=== PATIENT | male | born 1940 | race Caucasian/White ===

== ENCOUNTER 2019-08-17 15:49 | Emergency (ER) | payer MEDICARE, BC ==
[2019-08-17] MEDS ORDERED: Diphtheria,Pertussis(Acell),Tetanus Vaccine 0.5 ML SDV IM ONE (16:04)
[2019-08-17] MEDS ORDERED: Lidocaine 1% with EPINEPHrine 1:100,000 20 ML MDV INJECT ONE (16:39)
--- NOTE | 2019-08-17 17:36 | EDM.PDOC ---
"Scribed by Jory Mathur 08/17/19 [id number] for Kayleigh Mcdowell MD ED HPI GENERAL MEDICAL PROBLEM - General Chief Complaint: Trauma Stated Complaint: FELL DOWN, BRIDGE OF NOSE, LEFT EYE SWALLON Time Seen by Provider: 08/17/19 16:05 Source of Information: Reports: Patient, RN, RN Notes Reviewed History Limitations: Reports: No Limitations - History of Present Illness INITIAL COMMENTS - FREE TEXT/NARRATIVE: Patient presents to ER by POV. He was transferred to a trauma chart upon triage in the ER. Pt fell approx. 6' off ladder and struck his head/face on concrete floor or ladder. Denies LOC, neck pain, N/V, or any other injury. Last Tetanus vaccine >10yrs ago. TRAUMA NOTES: ARRIVAL TIME: 1605HRS C-COLLAR STATUS: none SPINAL BOARD/IMMOBILIZATION STATUS: none GCS ON ARRIVAL: 15 Onset: Today, Sudden Duration: Constant Location: Reports: Face Quality: Reports: Ache Severity: Mild Improves with: Reports: None Worsens with: Reports: None Associated Symptoms: Reports: No Other Symptoms - Related Data Allergies Allergy/AdvReac Type Severity Reaction Status Date / Time atorvastatin [From Lipitor] Allergy Muscle Verified 08/17/19 16:04 Aches Home Meds: Home Meds Aspirin 81 mg PO DAILY 05/16/18 [History] Clopidogrel [Plavix] 75 mg PO DAILY 05/16/18 [History] Nitroglycerin 0.4 mg PO ASDIRECTED PRN 05/16/18 [History] Omeprazole 20 mg PO DAILY 05/16/18 [History] Pravastatin Sodium 10 mg PO DAILY 05/16/18 [History] Past Medical History Cardiovascular History: Reports: Heart Murmur, Stents Other Cardiovascular History: Aortic Stenosis, Ptca with stent Other Respiratory History: States has been feeling like chest congestion. Has had antibiotics. Neurological History: Reports: Head Trauma (with subdural hematoma 2019) - Past Surgical History Cardiovascular Surgical History: Reports: Coronary Artery Stent Social & Family History - Family History Family Medical History: Noncontributory - Living Situation & Occupation Living situation: Reports: , with Spouse Occupation: Retired Review of Systems - Review of Systems Review Of Systems: Comprehensive ROS is negative, except as noted in HPI. ED EXAM, GENERAL - Physical Exam Exam: See Below Free Text/Narrative:: PRIMARY TRAUMA SURVEY (1605hrs) AIRWAY: Patent nasal and oral airways. BREATHING: Spontaneous respirations with clear B/L breath sounds. CIRCULATION: Heart RRR, intact distal pulses at all four extremities, no cyanosis. DEFORMITY/DISABILITY: No long bone deformities. No active bleeding. No neuro. deficits. Abdomen benign to exam. Left periorbital contusion, 1.5cm laceration above left eyebrow without active bleeding. EXPOSURE: Skin warm, and dry. SECONDARY TRAUMA SURVEY FOLLOWS (1650hrs) Exam Limited By: No Limitations General Appearance: Alert, WD/WN, No Apparent Distress Eye Exam: Left Eye: Other (periorbital contusion/hematoma), Bilateral Eye: EOMI , PERRL Ears: Normal External Exam, Normal Canal, Hearing Grossly Normal Nose: Normal Inspection, Normal Mucosa, No Blood Throat/Mouth: Normal Inspection, Normal Lips, Normal Teeth, Normal Gums, Normal Oropharynx, Normal Voice, No Airway Compromise Head: Normocephalic, Other (1/5cm linear laceration with soft tissue avulsion at the superior border of the left eyebrow) Neck: Normal Inspection, Supple, Non-Tender, Full Range of Motion, Other (No C- collar. C-spine cleared by Hx and exam, confirmed with CT scan.). No: Lymphadenopathy (L), Lymphadenopathy (R) Respiratory/Chest: No Respiratory Distress, Lungs Clear, Normal Breath Sounds, No Accessory Muscle Use, Chest Non-Tender Cardiovascular: Normal Peripheral Pulses, Regular Rate, Rhythm, No Edema, No Gallop, No JVD, No Murmur, No Rub GI/Abdominal: Normal Bowel Sounds, Soft, Non-Tender, No Organomegaly, No Distention, No Abnormal Bruit, No Mass (Male) Exam: Deferred Rectal (Males) Exam: Deferred Back Exam: Normal Inspection, Full Range of Motion. No: CVA Tenderness (L), CVA Tenderness (R) Extremities: Normal Inspection, Normal Range of Motion, Non-Tender, No Pedal Edema, Normal Capillary Refill, Other (Stable pelvis) Neurological: Alert, Oriented, CN II-XII Intact, Normal Cognition, Normal Gait, No Motor/Sensory Deficits, Other (GSC 15 at 1hr and at discharge.) Psychiatric: Normal Affect, Normal Mood Skin Exam: Warm, Dry, Normal Color, No Rash ED TRAUMA PROCEDURES - Laceration/Wound Repair Left Forehead Lac/Wound Length In cm: 1.5 Appearance: Subcutaneous, Linear Distal NVT: Neuro & Vascular Intact Anesthetic Type: Local Local Anesthesia - Lidocaine (Xylocaine): 1% with EPI Local Anesthetic Volume: 4cc Skin Prep: Chlorhexidine (Hibiciens), Saline, Sterile Drape Saline Irrigation (cc's): 150 Exploration/Debridement/Repair: Wound Explored, In a Bloodless Field, Explored to Base, Minimal Debridement, Minimally Undermined Closed With: Sutures Suture Size: 4-0 # of Sutures: 4 Drain Placement: No Sterile Dressing Applied: None Tetanus Status Addressed: Yes Complications: No Course - Orders/Labs/Meds Orders: Active Orders 24 hr Category Date Time Status Vaccines to be Administered [RC] PER UNIT ROUTINE Care 08/17/19 16:04 Active Meds: Medications Discontinued Medications Generic Name Dose Route Start Last Admin Trade Name Freq PRN Reason Stop Dose Admin Diphtheria/Tetanus/Acell Pertussis 0.5 ml 08/17/19 16:04 08/17/19 16:33 Adacel IM 08/17/19 16:05 0.5 ml .ONCE ONE Administration Lidocaine/Epinephrine 20 ml 08/17/19 16:39 Xylocaine 1% With Epinephrine 1:100,000 INJECT 08/17/19 16:40 ONETIME ONE - Radiology Interpretation Free Text/Narrative:: [facility] Final Radiology Report Call: [phone] assistance Online chat: [email or web address] Name: JUSTYN CR Age: 79Years M Date: 08/17/2019 SSN: -- : [id number] Study: CT HEAD WO Requesting Physician: KAYLEIGH MCDOWELL Images: 144 Addl Studies: Provided Clinical History: Contrast: Without Contrast Medium: Contrast Amount: Contrast Method: Page 1 of 2 PROCEDURE INFORMATION: Exam: CT Head Without Contrast Exam date and time: 08/17/2019 4:29 PM Age: 79 years old Clinical indication: Other: Fell off ladder, struck head, anticoagulated TECHNIQUE: Imaging protocol: Computed tomography of the head without contrast. Radiation optimization: All CT scans at this facility use at least one of these dose optimization techniques: automated exposure control; mA and/or kV adjustment per patient size (includes targeted exams where dose is matched to clinical indication); or iterative reconstruction. 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 There is no evidence for large acute cortical infarct. Moderate degrees of lucency in the white matter are most suggestive of chronic microvascular ischemic disease. This is similar. No intracranial hemorrhage or extraaxial collection is identified. There is no significant intracranial mass effect. Ventricles: The ventricles and sulci are stable in configuration, with similar atrophy. Bones/joints: Unremarkable. No acute fracture. Sinuses: Visualized sinuses are unremarkable. No fluid levels. Mastoid air cells: Visualized mastoid air cells are well aerated. Soft tissues: There is a low left frontal scalp contusion with subcutaneous gas indicating laceration. IMPRESSION: 1. No CT evidence for acute intracranial abnormality. 2. Low left frontal scalp contusion with laceration. JUSTYN CR | Final Radiology Report CONFIDENTIALITY STATEMENT This report is intended only for use by the referring physician, and only in accordance with law. If you received this in error, call [phone]. Page 2 of 2 Thank you for allowing us to participate in the care of your patient. Dictated and Authenticated by: Elias Monteiro MD 08/17/2019 4:48 PM Central Time ([place] & [place]) [facility] Final Radiology Report Call: [phone] assistance Online chat: [email or web address] Name: JUSTYN CR Age: 79Years M Date: 08/17/2019 SSN: -- : [id number] Study: CT SPINE CERVICAL WO Requesting Physician: KAYLEIGH MCDOWELL Images: 276 Addl Studies: Provided Clinical History: Contrast: Without Contrast Medium: Contrast Amount: Contrast Method: Page 1 of 2 PROCEDURE INFORMATION: Exam: CT Cervical Spine Without Contrast Exam date and time: 08/17/2019 4:29 PM Age: 79 years old Clinical indication: Other: Fell off ladder TECHNIQUE: Imaging protocol: Computed tomography images of the cervical spine without contrast. Radiation optimization: All CT scans at this facility use at least one of these dose optimization techniques: automated exposure control; mA and/or kV adjustment per patient size (includes targeted exams where dose is matched to clinical indication); or iterative reconstruction. COMPARISON: No relevant prior studies available. FINDINGS: Vertebrae: Vertebral body heights are intact. Straightening of the cervical lordotic curve could be secondary to muscle spasm or positioning. Alignment is otherwise maintained. No acute fracture is identified. Multilevel findings: There is multilevel spondylosis with variable osteophytic encroachment of several neural foramina. CT is not optimal for the evaluation of the discs, neural foramina or spinal canal or cord. No significant spinal stenosis is evident. Other bones/joints: The bones appear osteopenic. Soft tissues: The prevertebral soft tissues are not significantly swollen. Vasculature: Atherosclerotic vascular calcifications are noted. Lungs: Visualized lung apices are clear. Pleural space: No apical pneumothorax is identified. IMPRESSION: 1. No acute fracture or dislocation identified. JUSTYN CR | Final Radiology Report CONFIDENTIALITY STATEMENT This report is intended only for use by the referring physician, and only in accordance with law. If you received this in error, call [phone]. Page 2 of 2 2. Spondylosis without significant spinal stenosis evident. The discs and integrity of the cord could be better evaluated by means of MRI as clinically appropriate. 3. Apparent osteopenia. Thank you for allowing us to participate in the care of your patient. Dictated and Authenticated by: Elias Monteiro MD Departure - Departure Time of Disposition: 17:17 Disposition: Home, Self-Care 01 Condition: Good Clinical Impression: Minor closed head injury Laceration of left eyebrow without complication Qualifiers: Encounter type: initial encounter Qualified Code(s): S01.112A - Laceration without foreign body of left eyelid and periocular area, initial encounter Traumatic contusion of left periorbital region Qualifiers: Encounter type: initial encounter Qualified Code(s): S05.12XA - Contusion of eyeball and orbital tissues, left eye, initial encounter Fall from ladder Qualifiers: Encounter type: initial encounter Qualified Code(s): W11.XXXA - Fall on and from ladder, initial encounter - Discharge Information *PRESCRIPTION DRUG MONITORING PROGRAM REVIEWED*: Not Applicable *COPY OF PRESCRIPTION DRUG MONITORING REPORT IN PATIENT ALAN: Not Applicable Instructions: Facial or Scalp Contusion, [id number], Sutured Wound Care Forms: ED Department Discharge Additional Instructions: Follow up in clinic for suture removal in 7 to 10 days. Return to ER if any new symptoms develop such as severe headaches, visual changes, or confusion. Sepsis Event Note - Focused Exam Date Exam was Performed: 08/17/19 Time Exam was Performed: 17:26 - My Orders Last 24 Hours: My Active Orders 08/17/19 16:04 Vaccines to be Administered [RC] PER UNIT ROUTINE - Assessment/Plan Last 24 Hours: My Active Orders 08/17/19 16:04 Vaccines to be Administered [RC] PER UNIT ROUTINE I have read and agree with the documentation that has been completed regarding this visit. By signing this record, I attest that the documentation was completed in my physical presence and is an accurate record of the encounter."
== END 2019-08-17 17:46 | disposition home or self-care (01) ==
LOC: DL.ED 15:49
DX: S01.112A Laceration without foreign body of left eyelid and periocular area, initial encounter (principal); S01.81XA Laceration without foreign body of other part of head, initial encounter; Z79.02 Long term (current) use of antithrombotics/antiplatelets; Z79.899 Other long term (current) drug therapy; Z88.8 Allergy status to other drugs, medicaments and biological substances; Z23 Encounter for immunization; W11.XXXA Fall on and from ladder, initial encounter
CPT/HCPCS: 12011; 70450; 72125; 90471; 90715; 99283-25; 99284

== ENCOUNTER 2019-11-24 17:23 | Emergency (ER) | payer MEDICARE, BC ==
[2019-11-24] MEDS ORDERED: Tetracaine HCl/PF 0.5% 4 ML Bottle EYELF ONE (17:40)
[2019-11-24] MEDS ORDERED: Fluorescein 1 MG Ophth Strip EYELF ONE (17:40)
--- NOTE | 2019-11-24 18:05 | EDM.PDOC ---
ED HPI GENERAL MEDICAL PROBLEM - General Chief Complaint: ENT Problem Stated Complaint: SOMETHING IN LEFT EYE Time Seen by Provider: 11/24/19 17:45 Source of Information: Reports: Patient History Limitations: Reports: No Limitations - History of Present Illness INITIAL COMMENTS - FREE TEXT/NARRATIVE: This 79 yo male patient reports to the ED due to left eye irritation. The so ent reports he was outside spraying for mosquitos and working in the yard when he got something stuck in his left eye. Onset: Today Duration: Hour(s):, Constant Location: Reports: Face (left eye) Quality: Reports: Ache, Dull Severity: Moderate Improves with: Reports: None Worsens with: Reports: None Context: Reports: Other Associated Symptoms: Reports: No Other Symptoms Left Eye Pain Score (Numeric/FACES): 6 - Related Data Allergies Allergy/AdvReac Type Severity Reaction Status Date / Time atorvastatin [From Lipitor] Allergy Muscle Verified 11/24/19 17:40 Aches Home Meds: Home Meds Aspirin 81 mg PO DAILY 05/16/18 [History] Omeprazole 20 mg PO DAILY 05/16/18 [History] lisinopriL [Lisinopril] 5 mg PO ASDIRECTED 11/24/19 [History] Past Medical History HEENT History: Reports: Other (See Below) Other HEENT History: Here with eye irritation Cardiovascular History: Reports: Heart Murmur, Hypertension, Stents Other Cardiovascular History: Aortic Stenosis, Ptca with stent Other Respiratory History: States has been feeling like chest congestion. Has had antibiotics. Genitourinary History: Reports: BPH Neurological History: Reports: Head Trauma - Past Surgical History HEENT Surgical History: Reports: None Cardiovascular Surgical History: Reports: Coronary Artery Stent Social & Family History - Family History Family Medical History: Noncontributory - Living Situation & Occupation Living situation: Reports: , with Spouse Occupation: Retired ED ROS GENERAL - Review of Systems Review Of Systems: Comprehensive ROS is negative, except as noted in HPI. ED EXAM GENERAL W FULL EYE - Physical Exam Exam: See Below Exam Limited By: No Limitations General Appearance: Alert, WD/WN, No Apparent Distress Eye Exam: Left Eye: Corneal Abrasion, Bilateral Eye: EOMI, Normal Inspection, PERRL Eyelids: Left: Erythema, Lid Everted for Exam Cornea Exam: Left: Corneal Abrasion Extraocular Movements: Bilateral: Intact Pupils: Normal Accommodation Pupillary Size: Bilateral: 5 mm Pupillary Reaction: Bilateral: Brisk Ears: Normal External Exam Nose: Normal Inspection, Normal Mucosa, No Blood Throat/Mouth: Normal Inspection, Normal Lips, Normal Teeth, Normal Gums, Normal Oropharynx, Normal Voice, No Airway Compromise Head: Atraumatic, Normocephalic Neck: Normal Inspection, Supple, Non-Tender, Full Range of Motion Respiratory/Chest: No Respiratory Distress, Lungs Clear, Normal Breath Sounds, No Accessory Muscle Use, Chest Non-Tender Cardiovascular: Normal Peripheral Pulses, Regular Rate, Rhythm, No Edema, No Gallop, No JVD, No Murmur, No Rub (Male) Exam: Deferred Rectal (Males) Exam: Deferred Extremities: Normal Inspection Neurological: Alert, Oriented Psychiatric: Normal Affect, Normal Mood ED EYE w/ Add Procedure - Eye Procedure Eye FB Removal: Removal w/ Cotton Swab Cyclogel 2 Drops Administered: Left Eye Antibiotic Oinment/Drps Admin: Left Eye Course - Vital Signs Last Recorded V/S: Last Vital Signs Temp 36.6 C 11/24/19 17:35 Pulse 61 11/24/19 17:35 Resp 18 11/24/19 17:35 BP 143/64 H 11/24/19 17:35 Pulse Ox 99 11/24/19 17:35 - Orders/Labs/Meds Meds: Medications Discontinued Medications Generic Name Dose Route Start Last Admin Trade Name Matteo PRN Reason Stop Dose Admin Fluorescein Sodium 1 mg 11/24/19 17:40 Ful-Daisha EYELF 11/24/19 17:41 ONETIME ONE Tetracaine HCl 1 ml 11/24/19 17:40 Tetracaine 0.5% Steri-Unit Katie EYELF 11/24/19 17:41 ASDIRECTED ONE Departure - Departure Time of Disposition: 18:11 Disposition: Home, Self-Care 01 Condition: Fair Clinical Impression: Corneal abrasion Qualifiers: Encounter type: initial encounter Laterality: left Qualified Code(s): S05.02XA - Injury of conjunctiva and corneal abrasion without foreign body, left eye, initial encounter Foreign body of left eye Qualifiers: Encounter type: initial encounter Qualified Code(s): T15.92XA - Foreign body on external eye, part unspecified, left eye, initial encounter - Discharge Information *PRESCRIPTION DRUG MONITORING PROGRAM REVIEWED*: Not Applicable *COPY OF PRESCRIPTION DRUG MONITORING REPORT IN PATIENT ALAN: Not Applicable Instructions: Corneal Abrasion, [id number] Care Plan Goals: The patient was advised of the examination results during the visit. The foreign body was removed from the left eye. The patient was discharged with Polytrim Ointment to apply a 1/4 inch ribbon applied to the lower eyelid 4 times per day for 7 days. If the patient has any additional symptoms or concerns, the patient should either return to the emergency department or visit his primary care facility. Sepsis Event Note (ED) - Evaluation Sepsis Screening Result: No Definite Risk - Focused Exam Vital Signs: Vital Signs Temp Pulse Resp BP Pulse Ox 11/24/19 17:35 36.6 C 61 18 143/64 H 99
[2019-11-24] MEDS ORDERED: Bacitracin/Polymyxin B Ophth Oint 3.5 GM Tube ONE (18:14)
== END 2019-11-24 18:22 | disposition home or self-care (01) ==
LOC: DL.ED 17:23
DX: T15.02XA Foreign body in cornea, left eye, initial encounter (principal); I10 Essential (primary) hypertension; Z79.82 Long term (current) use of aspirin; Z79.899 Other long term (current) drug therapy; Z88.8 Allergy status to other drugs, medicaments and biological substances
CPT/HCPCS: 65220; 99283; A9270

== ENCOUNTER 2020-12-26 20:18 | Emergency (ER) | payer MEDICARE, BC ==
[2020-12-26] MEDS ORDERED: Tetracaine HCl/PF 0.5% 4 ML Bottle EYEBOTH ONE (20:25)
[2020-12-26] MEDS ORDERED: Fluorescein 1 MG Ophth Strip EYERT ONE (20:25)
[2020-12-26] MEDS ORDERED: Polymyxin B/Trimethoprim 10 ML Bottle ONE (20:48)
--- NOTE | 2020-12-26 20:50 | EDM.PDOC ---
ED HPI GENERAL MEDICAL PROBLEM - General Chief Complaint: Eye Problems Stated Complaint: SOMETHING IN EYE Time Seen by Provider: 12/26/20 20:40 Source of Information: Reports: Patient History Limitations: Reports: No Limitations - History of Present Illness INITIAL COMMENTS - FREE TEXT/NARRATIVE: This 80 yo male patient reports to the ED due to something in his left eye. The patient reports he was working in the shop when he noticed something in his eye. The patient reports he attempted to flush the eye with drops, but continued to have pain to the eye. The patient reports pain to the left upper eyelid. Onset: Today Duration: Minutes: Location: Reports: Face Quality: Reports: Ache Severity: Mild Improves with: Reports: None Worsens with: Reports: None Context: Reports: Other Associated Symptoms: Reports: No Other Symptoms - Related Data Allergies Allergy/AdvReac Type Severity Reaction Status Date / Time atorvastatin [From Lipitor] Allergy Muscle Verified 12/26/20 20:31 Aches Home Meds: Home Meds Aspirin 81 mg PO DAILY 05/16/18 [History] Omeprazole 20 mg PO DAILY 05/16/18 [History] lisinopriL [Lisinopril] 5 mg PO ASDIRECTED 11/24/19 [History] Past Medical History HEENT History: Reports: Other (See Below) Other HEENT History: Here with eye irritation Cardiovascular History: Reports: Heart Murmur, Hypertension, Stents Other Cardiovascular History: Aortic Stenosis, Ptca with stent Other Respiratory History: States has been feeling like chest congestion. Has had antibiotics. Gastrointestinal History: Reports: None Genitourinary History: Reports: BPH Musculoskeletal History: Reports: None Neurological History: Reports: Head Trauma Psychiatric History: Reports: None Endocrine/Metabolic History: Reports: None Hematologic History: Reports: None Dermatologic History: Reports: None - Infectious Disease History Infectious Disease History: Reports: None - Past Surgical History HEENT Surgical History: Reports: None Cardiovascular Surgical History: Reports: Coronary Artery Stent Social & Family History - Family History Family Medical History: No Pertinent Family History - Tobacco Use Tobacco Use Status *Q: Never Tobacco User - Caffeine Use Caffeine Use: Reports: None - Recreational Drug Use Recreational Drug Use: No - Living Situation & Occupation Living situation: Reports: , with Spouse Occupation: Retired ED ROS GENERAL - Review of Systems Review Of Systems: Comprehensive ROS is negative, except as noted in HPI. ED EXAM GENERAL W FULL EYE - Physical Exam Exam: See Below Exam Limited By: No Limitations General Appearance: Alert, WD/WN, No Apparent Distress Eye Exam: Left Eye: Other (White foreign body removed left upper eyelid, corneal abrasion noted ), Bilateral Eye: EOMI, PERRL Cornea Exam: Left: Corneal Abrasion Extraocular Movements: Bilateral: Intact Pupils: Normal Accommodation Pupillary Size: Right: 2 mm, Left: 5 mm Pupillary Reaction: Bilateral: Brisk Anterior Chamber: Bilateral: Normal Appearance Posterior Chamber: Bilateral: Normal Funduscopic Ears: Normal External Exam, Normal Canal, Hearing Grossly Normal, Normal TMs Nose: Normal Inspection, Normal Mucosa, No Blood Throat/Mouth: Normal Inspection, Normal Lips, Normal Teeth, Normal Gums, Normal Oropharynx, Normal Voice, No Airway Compromise Head: Atraumatic, Normocephalic Neck: Normal Inspection, Supple, Non-Tender, Full Range of Motion Respiratory/Chest: No Respiratory Distress, Lungs Clear, Normal Breath Sounds, No Accessory Muscle Use, Chest Non-Tender Cardiovascular: Normal Peripheral Pulses, Regular Rate, Rhythm, No Edema, No Gallop, No JVD, No Murmur, No Rub (Male) Exam: Deferred Rectal (Males) Exam: Deferred Back Exam: Normal Inspection, Full Range of Motion, NT Extremities: Normal Inspection, Normal Range of Motion, Non-Tender, Normal Capillary Refill, No Pedal Edema Neurological: Alert, Oriented, CN II-XII Intact, Normal Cognition, Normal Gait, Normal Reflexes, No Motor/Sensory Deficits Psychiatric: Normal Affect, Normal Mood Skin Exam: Warm, Dry, Intact, Normal Color, No Rash Lymphatic: No Adenopathy ED EYE w/ Add Procedure - Eye Procedure Alcaine Drops Administered: Yes Eye FB Removal: Removal w/ Cotton Swab Antibiotic Oinment/Drps Admin: Left Eye Progress: White reuben removed from left upper eyelid. Corneal abrasion noted to left lower pupil (5 o'clock position). Course - Vital Signs Last Recorded V/S: Last Vital Signs Temp 97.9 F 12/26/20 20:32 Pulse 81 12/26/20 20:32 Resp 18 12/26/20 20:32 BP 145/78 H 12/26/20 20:32 Pulse Ox 97 12/26/20 20:32 - Orders/Labs/Meds Meds: Medications Discontinued Medications Generic Name Dose Route Start Last Admin Trade Name Freq PRN Reason Stop Dose Admin Fluorescein Sodium 1 mg 12/26/20 20:25 12/26/20 20:32 Fluorescein 1 Mg Ophth Strip EYERT 12/26/20 20:26 1 mg ONETIME ONE Administration Tetracaine HCl 1 ml 12/26/20 20:25 12/26/20 20:32 Tetracaine Hcl/Pf 0.5% 4 Ml Bottle EYEBOTH 12/26/20 20:26 1 drop ASDIRECTED ONE Administration Departure - Departure Time of Disposition: 20:46 Disposition: Home, Self-Care 01 Condition: Fair Clinical Impression: Foreign body of left eyelid Corneal abrasion, left Qualifiers: Encounter type: initial encounter Qualified Code(s): S05.02XA - Injury of conjunctiva and corneal abrasion without foreign body, left eye, initial encounter - Discharge Information *PRESCRIPTION DRUG MONITORING PROGRAM REVIEWED*: Not Applicable *COPY OF PRESCRIPTION DRUG MONITORING REPORT IN PATIENT ALAN: Not Applicable Instructions: Eye Foreign Body, [id number], Corneal Abrasion Forms: ED Department Discharge Care Plan Goals: The patient was advised of the examination results during the visit. A white foreign body was removed from the left upper eyelid. The patient was discharged with Polytrim to apply 1 drop to the left eye 4 times per day for 5 days. If the patient has any additional symptoms or concerns, the patient should either return to the emergency department or visit his primary care facility. Sepsis Event Note (ED) - Focused Exam Vital Signs: Vital Signs Temp Pulse Resp BP Pulse Ox 12/26/20 20:32 97.9 F 81 18 145/78 H 97
== END 2020-12-26 20:58 | disposition home or self-care (01) ==
LOC: DL.ED 20:18
DX: T15.12XA Foreign body in conjunctival sac, left eye, initial encounter (principal); I10 Essential (primary) hypertension; Z79.82 Long term (current) use of aspirin; Z79.899 Other long term (current) drug therapy; Z88.8 Allergy status to other drugs, medicaments and biological substances
CPT/HCPCS: 65205; 99283; A9270

== ENCOUNTER 2022-04-23 12:45 | Emergency (ER) | payer MEDICARE, BC ==
[2022-04-23] MEDS ORDERED: Benzonatate 100 MG Cap PO ONE (12:46)
[2022-04-23 13:50] LABS: RESPIRATORY SYNCYTIAL VIR NAA NEGATIVE (NEGATIVE)
[2022-04-23 13:52] LABS: CORONAVIRUS COVID-19 NAA POSITIVE (NEGATIVE)
[2022-04-23] MEDS ORDERED: Benzonatate 100 MG Cap ONE (14:58)
== END 2022-04-23 14:58 | disposition home or self-care (01) ==
LOC: DL.ED 12:45
DX: U07.1 COVID-19 (principal); Z88.8 Allergy status to other drugs, medicaments and biological substances; Z79.82 Long term (current) use of aspirin; Z79.899 Other long term (current) drug therapy; Z95.5 Presence of coronary angioplasty implant and graft
CPT/HCPCS: 0241U; 71045; 87081; 87430; 99283; A9270

== ENCOUNTER 2022-10-13 20:04 | Emergency (ER) | payer MEDICARE, BC ==
[2022-10-13] MEDS ORDERED: Tetracaine HCl/PF 0.5% 4 ML Bottle EYELF ONE (20:19)
[2022-10-13] MEDS ORDERED: Fluorescein 1 MG Ophth Strip EYELF ONE (20:19)
[2022-10-13] MEDS ORDERED: Erythromycin Base 0.5% Ophth Oint 3.5 GM Tube EYELF ONE (20:51)
[2022-10-13] MEDS ORDERED: Erythromycin Base 0.5% Ophth Oint 3.5 GM Tube ONE (20:53)
== END 2022-10-13 21:05 | disposition home or self-care (01) ==
LOC: DL.ED 20:04
DX: S05.02XA Injury of conjunctiva and corneal abrasion without foreign body, left eye, initial encounter (principal); I10 Essential (primary) hypertension; Z88.8 Allergy status to other drugs, medicaments and biological substances; Z79.82 Long term (current) use of aspirin; Z79.899 Other long term (current) drug therapy; W22.8XXA Striking against or struck by other objects, initial encounter
CPT/HCPCS: 99282; 99283; A9270; J3490